=== PATIENT | female | born 1960 ===

== ENCOUNTER → 2024-07-22 15:13 | Outpatient (REF) | payer MEDICARE, BC, SELFPAY | LOC: DHVS 15:13 | PROVIDERS: ATTENDING PHYSICIAN Surgery Vascular Surgery | DX: M79.601 Pain in right arm (principal); Z86.69 Personal history of other diseases of the nervous system and sense organs | CPT/HCPCS: 93923; 93930 ==

== ENCOUNTER → 2024-08-05 12:55 | Outpatient (REF) | payer OTHER, BC, MEDICARE, SELFPAY | LOC: RAD 12:55 | PROVIDERS: ATTENDING PHYSICIAN Psychiatry & Neurology Neurology | DX: M54.2 Cervicalgia (principal); M54.12 Radiculopathy, cervical region | CPT/HCPCS: 72040 ==

== ENCOUNTER → 2025-02-06 14:28 | Outpatient (REF) | payer MEDICARE, OTHER, SELFPAY | LOC: RAD 14:28 | PROVIDERS: ATTENDING PHYSICIAN Surgery Vascular Surgery | DX: I70.8 Atherosclerosis of other arteries (principal) | CPT/HCPCS: 93923 ==